=== PATIENT | female | born 1985 | race American Indian/Alaskan Native ===

== ENCOUNTER 2018-04-10 12:49 | Emergency (ER) | payer OTHER ==
[2018-04-10 13:51] VITALS: BP 155/93
[2018-04-10] MEDS ORDERED: MOTRIN PO ONE (14:58)
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
== END 2018-04-10 16:54 | disposition home or self-care (01) ==
LOC: ED 12:49
DX: S46.911A Strain of unspecified muscle, fascia and tendon at shoulder and upper arm level, right arm, initial encounter (principal); S13.4XXA Sprain of ligaments of cervical spine, initial encounter; S20.211A Contusion of right front wall of thorax, initial encounter; V49.49XA Driver injured in collision with other motor vehicles in traffic accident, initial encounter; W22.11XA Striking against or struck by driver side automobile airbag, initial encounter; Y93.89 Activity, other specified; Y99.8 Other external cause status; Y92.488 Other paved roadways as the place of occurrence of the external cause
CPT/HCPCS: 72040